=== PATIENT | female | born 1965 | race Caucasian/White ===

== ENCOUNTER → 2017-01-19 | Outpatient (CLI) | payer OTHER ==
--- NOTE | 2017-01-21 11:04 | MG ---
HISTORY: SCREENING, but the patient reports subacute lateral right breast pain Comparison: May 07, 2013 FINDINGS: Bilateral CC and MLO projections of the right and left breast were obtained utilizing both full-fiel d and push back techniques. Scattered fibroglandular tissue is seen to be present without significa nt interval change. No suspicious architectural distortion, mass or clustered microcalcifications c an be observed to suggest malignancy. No skin thickening or nipple retraction is appreciated. No pathological lymphadenopathy can be identified. Benign-appearing calcifications are noted within the right and left breast. Bilateral subpectoral saline implants appear grossly intact. IMPRESSION: NO RADIOGRAPHIC EVIDENCE OF MALIGNANCY. However, given the presence of breast pain, tar geted sonography is recommended. ACR CATEGORY 0 - assessment incomplete; additional imaging recommended. Diagnostic CAD was utilized and reviewed. * 0 (ZERO) - ASSESSMENT INCOMPLETE; ADDITIONAL IMAGING IS NEEDED. * 1/1 (ONE) - NEGATIVE. * 2/II (TWO) - BENIGN FINDINGS. * 3/III (THREE) - PROBABLY BENIGN FINDING; SHORT INTERVAL FOLLOW-UP SUGGESTED. * 4/IV (FOUR) - SUSPICIOUS ABNORMALITY; BIOPSY SHOULD BE CONSIDERED. * 5/V (FIVE) - HIGHLY SUSPICIOUS OF MALIGNANCY; BIOPSY SHOULD BE PERFORMED. A NEGATIVE X-RAY REPORT SHOULD NOT DELAY BIOPSY IF A DOMINANT OR CLINICALLY SUSPICIOUS MASS IS PRESENT; 4 TO 8 PERCENT OF CANCERS ARE NOT IDENTIFIED BY X-RAY. A NEG ATIVE REPORT MAY REINFORCE THE CLINICAL IMPRESSION. ADENOSIS AND DENSE BREASTS MAY OBSCURE AN UNDER LYING NEOPLASM. Reported By:
== END ==
LOC: RAD 15:27
PROVIDERS: ATTEND Nurse Practitioner Family
DX: Z12.31 Encounter for screening mammogram for malignant neoplasm of breast (principal)
CPT/HCPCS: 77067

== ENCOUNTER → 2017-03-24 | Outpatient (CLI) | payer OTHER ==
--- NOTE | 2017-03-24 14:27 | US ---
HISTORY: Right lateral breast pain Study: Right breast ultrasound Comparison: January 19, 2017 Technique: Multiple grayscale and color Doppler images of the right breast were obtained. Findings: The lateral right breast was imaged from 6-12 o'clock. At 9 o'clock approximately 2 cm from the nippl e, there is a horizontally oriented macro lobulated predominantly smoothly marginated and well circum scribed 7 mm heterogeneous mixed echogenicity nodule with posterior acoustical enhancement and a smal l amount of internal vascularity with a few ill-defined borders for which primary differential consid erations include an intramammary lymph node, fibroadenoma, complex cysts, or focal dense fibrocystic change with a more aggressive process is much less likely but for which 3-6 month sonographic follow up is recommended as there is no stable corresponding mammographic nodule identified. IMPRESSION: Probably benign 9 o'clock right breast nodule for which 3-6 month sonographic follow up is recommende d. BI-RADS 3. Probably benign findings; short interval followup suggested. * 0 (ZERO) - ASSESSMENT INCOMPLETE; ADDITIONAL IMAGING IS NEEDED. * 1/1 (ONE) - NEGATIVE. * 2/II (TWO) - BENIGN FINDINGS. * 3/III (THREE) - PROBABLY BENIGN FINDING; SHORT INTERVAL FOLLOW-UP SUGGESTED. * 4/IV (FOUR) - SUSPICIOUS ABNORMALITY; BIOPSY SHOULD BE CONSIDERED. * 5/V (FIVE) - HIGHLY SUSPICIOUS OF MALIGNANCY; BIOPSY SHOULD BE PERFORMED. * 6/ (SIX) - KNOWN MALIGNANCY. A NEGATIVE X-RAY REPORT SHOULD NOT DELAY BIOPSY IF A DOMINANT OR CLINICALLY SUSPICIOUS MASS IS PRESENT; 4 TO 8 PERCENT OF CANCERS ARE NOT IDENTIFIED BY X-RAY. A NEGA TIVE REPORT MAY REINFORCE THE CLINICAL IMPRESSION. ADENOSIS AND DENSE BREASTS MAY OBSCURE AN UNDERLY ING NEOPLASM. Reported By:
== END ==
LOC: RAD 13:21
PROVIDERS: ATTEND Nurse Practitioner Family
DX: N64.4 Mastodynia (principal)
CPT/HCPCS: 76642

== ENCOUNTER → 2017-10-24 | Outpatient (CLI) | payer OTHER ==
[2017-10-24 12:25] LABS: CREATININE 1.26 mg/dL (0.55-1.02)
--- NOTE | 2017-10-24 14:41 | CT ---
HISTORY: Double vision. Study: CT brain with and without IV contrast. Comparison: None. Technique: Multiple axial images of the brain were obtained from the skull base to the vertex both prior to and after the administration of IV contrast. Findings: No acute intraparenchymal hemorrhage or mass can be identified. There is no abnormal enhan cement on postcontrast imaging. No extra-axial fluid collections are seen. No alteration in the att enuation of the brain parenchyma can be identified to suggest acute or subacute ischemic change. The ventricular system is symmetric and nondilated. The extracranial structures are grossly unremarkabl e. IMPRESSION: Negative CT of the head with and without IV contrast. Reported By:
== END ==
LOC: RAD 11:59
PROVIDERS: ATTEND Obstetrics & Gynecology
DX: R51 Headache (principal); H53.2 Diplopia; H53.8 Other visual disturbances
CPT/HCPCS: 36415; 70470; 82565; 84520; A4222

== ENCOUNTER → 2017-12-15 | Outpatient (CLI) | payer OTHER ==
--- NOTE | 2017-12-16 06:37 | RAD ---
Examination: Lumbar spine, AP and lateral views History: Back pain, fell Findings: Normal appearance of vertebrae and disc spaces, with normal alignment. Pedicles and sacroil iac joints intact. No fracture, bone destruction or other significant lesion. Multiple surgical clips are noted adjacent to the upper lumbar spine. Impression: No acute lumbar spine abnormality demonstrated. Reported By:
== END ==
LOC: RAD 16:17
PROVIDERS: ATTEND Nurse Practitioner Family
DX: M54.5 Low back pain (principal)
CPT/HCPCS: 72100